=== PATIENT | male | born 1980 | race American Indian/Alaskan Native ===

== ENCOUNTER 2018-01-07 07:01 | Day surgery (SDC) | payer BC ==
[2017-12-30 14:36] VITALS: BMI 27.7
[2018-01-07] MEDS ORDERED: ceFAZolin IV 1 gm in Dextrose 2 GM/100 ML BAG IVPB ONE (13:09)
[2018-01-07] MEDS ORDERED: Lidocaine/Epinephrine 1% 1:100000 10 ML IJ ONE (13:09)
[2018-01-07] MEDS ORDERED: Bupivacaine 0.25% 20 ML INJ IJ ONE ×2 (13:09→13:10)
[2018-01-07] MEDS ORDERED: Propofol 10 mg/ml Inj (20 ML) ONE (13:23)
[2018-01-07] MEDS ORDERED: Midazolam 2 MG/2 ML VIAL ONE (13:23)
[2018-01-07] MEDS ORDERED: Neostigmine Methylsulfate 3mg/3ml Syringe IV ONE (15:21)
[2018-01-07] MEDS ORDERED: Oxycodone/Acetaminophen 5/325 mg Tab PO PRN (15:49)
[2018-01-07] MEDS ORDERED: HYDROmorphone 0.5 mg/0.5 ml ISec IVP PRN (15:51)
--- NOTE | 2018-01-07 15:51 | PCM.SURG1 ---
Surgeon's Initial Post Op Note - Surgeon's Notes Surgeon: Dr. Su Bisque Ware Dipper: ADONIS Hernandez Pre-Operative Diagnosis: BL inguinal hernia Operative Findings: BL inguinal hernias Post-Operative Diagnosis: same Operation Performed: robotic assisted laparoscopic bilateral inguinal hernia repair with mesh Specimen/Specimens Removed: cord lipoma Estimated Blood Loss: EBL {In ML}: 20 Date of Surgery/Procedure: 01/07/18 Time of Surgery/Procedure: 14:00
[2018-01-07] MEDS ORDERED: Lactated Ringer's 1,000 ML IV ONE (17:15)
[2018-01-07 17:59] VITALS: RESP 16
[2018-01-07 18:50] VITALS: BP 136/75; PULSE 75; TEMP 98.6; O2SAT 99
--- NOTE | 2018-01-10 02:03 | OP ---
PROCEDURE DATE: 01/07/2018 PREOPERATIVE DIAGNOSES: 1. Right inguinal hernia. 2. Possible left inguinal hernia. 3. Bilateral groin pain. POSTOPERATIVE DIAGNOSES: 1. Right indirect inguinal hernia. 2. Left direct inguinal hernia containing large lipoma of the cord. 3. Large lipoma of the cord on the right side. PROCEDURES DONE: 1. Robotic right inguinal hernia repair with a mesh. 2. Robotic left inguinal hernia repair with a mesh. 3. Robotic excision of lipoma of the cord bilaterally. 4. Laparoscopic bilateral transverse abdominis plane block placement. SURGEON: Uriah Su MD SUPERVISOR BURLING AND JOINING: MAGGIE Hernandez ANESTHESIA: General endotracheal tube anesthesia. ESTIMATED BLOOD LOSS: Around 10 mL. DRAINS: None. PATHOLOGY: The lipomas of the right spermatic cord and left spermatic cord were sent for the pathology. COMPLICATIONS: None. INTRAOPERATIVE FINDINGS: The patient had right indirect inguinal hernia containing large lipoma of spermatic cord, and the patient had a left direct inguinal hernia and also had a lipoma of the cord on the left side. DESCRIPTION OF PROCEDURE: On intraoperative steps, this is a 37-year-old male who was diagnosed with right inguinal hernia. The patient also had a pain in the left groin. The patient was consented for the robotic right inguinal hernia repair with a mesh with possible bilateral repair. The patient was brought to the OR, placed supine on the operating table. After induction of anesthesia, the abdomen was prepped and draped in the usual sterile fashion. A supraumbilical transverse incision was made after incising the skin, subcutaneous tissue, and the fascia. The robotic camera port was placed and pneumo was created. Another 3 x 8 mm port was placed in the upper abdomen. Robot was brought in. Camera arm as well as arm 1 and 2 were docked. The patient had right direct inguinal hernia. The patient also had a left direct inguinal hernia containing a large lipoma of the spermatic cord. The peritoneum was resected from the left ASIS up to the right ASIS. Dissection was carried down in the midline up to the space of Retzius. Laterally, the peritoneum was dissected from the lateral abdominal wall. The vas deferens and spermatic cord vessels were . The peritoneal sac was reduced back into the peritoneal cavity. The large lipoma of the cord was also excised. The dissection was carried down deep up to the pelvic brim to complete the dissection on the left side. Now, again the dissection was carried down. On the right side, the peritoneum was dissected and the vas deferens and spermatic cord vessels were identified, and the peritoneal sac was reduced back into peritoneal cavity. The patient had a large lipoma of the cord that was also excised. The inferior dissection was done up to the pelvic brim. After that, the right and left anatomical meshes were placed. Both meshes were implanted. After proper implantation of the meshes, the peritoneum was sutured with a 3-0 V-Loc PDS continuous suture. After that, all the specimens were then sent off the table for the pathology. The robot instrument was taken out. The procedure was converted to laparoscopic after undocking the robot, and bilateral TAP block was given. A 30:30 mL of Marcaine was injected in both transverse abdominis muscle planes. After that, all the ports were taken out under vision. Pneumo was deflated. The umbilical port site was closed in two layers, the fascia with 0 Vicryl interrupted suture and skin with a 4-0 Monocryl. Dry sterile dressing was applied. The patient tolerated the procedure well. Count of instrument and gauze was correct. There was no apparent complication. The patient was extubated in OR, sent to the postanesthesia care unit in stable condition. Uriah Su MD
== END 2018-01-07 20:25 | disposition home or self-care (01) ==
LOC: C.SDS 07:01
PROVIDERS: ATTEND Surgery Surgical Critical Care
DX: K40.20 Bilateral inguinal hernia, without obstruction or gangrene, not specified as recurrent (principal); D17.6 Benign lipomatous neoplasm of spermatic cord
CPT/HCPCS: 49650; 88304; C1781; J0690; J1170; J2250; J2405; J2704; J2710; J3010; J7120